=== PATIENT | female | born 1990 | race American Indian/Alaskan Native ===

== ENCOUNTER 2019-12-25 13:10 | Emergency (ER) | payer SELFPAY ==
[2019-12-25 13:36] VITALS: BP 126/74
--- NOTE | 2019-12-25 13:57 | Emergency Department Report ---
Blank Doc - Documentation Documentation: 29-year-old female that presents with diarrhea and weakness. Stated has some SOB but denies any CP. This initial assessment/diagnostic orders/clinical plan/treatment(s) is/are subject to change based on patient's health status, clinical progression and re- assessment by fellow clinical providers in the ED. Further treatment and workup at subsequent clinical providers discretion. Patient/guardians urged not to elope from the ED as their condition may be serious if not clinically assessed and managed. Initial orders include: 1- Patient sent to [facility] for further evaluation and treatment 2- labs
[2019-12-25 15:01] LABS: Bilirubin,Urine NEG (Negative); Blood,Urine NEG (Negative); Color,Urine Straw (Yellow); Protein,Urine <15 mg/dL mg/dL (Negative); Urobilinogen,Urine < 2.0 mg/dL (<2.0)
[2019-12-25 15:11] LABS: Basophils # (Auto) 0.1 K/mm3 (0.0-0.1); Basophils % (Auto) 0.7 % (0.0-1.8); Eosinophils % (Auto) 0.3 % (0.0-4.3); Hematocrit 41.3 % (30.3-42.9); Hemoglobin 13.9 gm/dl (10.1-14.3); Lymphocytes # (Auto) 1.6 K/mm3 (1.2-5.4); Lymphocytes % (Auto) 22.2 % (13.4-35.0); Mean Corpuscular HGB Conc 34 % (30-34); Mean Corpuscular Volume 83 fl (79-97); Monocytes # (Auto) 0.4 K/mm3 (0.0-0.8); Monocytes % (Auto) 5.2 % (0.0-7.3); Platelet Count 241 K/mm3 (140-440); Red Blood Count 4.96 M/mm3 (3.65-5.03); Red Cell Distribution Width 14.1 % (13.2-15.2)
[2019-12-25 15:41] LABS: Alanine Aminotransferase 28 units/L (7-56); BUN/Creatinine Ratio 12; Blood Urea Nitrogen 6 mg/dL (7-17); Calcium 9.9 mg/dL (8.4-10.2)
[2019-12-25 15:42] LABS: Albumin 4.6 g/dL (3.9-5)
--- NOTE | 2019-12-25 15:47 | XRay Report ---
Abdominal series complete with frontal chest 3 views INDICATION / CLINICAL INFORMATION: diarrhea/UPT. Abdominal pain COMPARISON: None available. FINDINGS: TUBES / LINES: None. BOWEL GAS PATTERN: No significant abnormality. FREE AIR / EXTRALUMINAL GAS: None seen. Chest: No significant additional findings. IMPRESSION: 1. No significant abnormality. Signer Name: Jorge Siegel MD Signed: 12/25/2019 3:42 PM Workstation Name: [id number]
--- NOTE | 2019-12-25 17:19 | Emergency Department Report ---
ED General Adult HPI - General Chief complaint: Weakness Stated complaint: PANIC ATTACKS/SOB/C/F Time Seen by Provider: 12/25/19 13:54 Source: patient Mode of arrival: Ambulatory Limitations: No Limitations - History of Present Illness Initial comments: This is a 29-year-old female with no prior medical history who presents the ED complaining of body aches, shortness of breath, diarrhea for the past week. Patient states she has been everywhere so she is unsure if she has had contact with cold with patient or sick contact. Patient states symptoms started about a week ago but is not resolving so she presents here today. Patient does note watery loose stools with some abdominal cramping with stooling Patient states she has a history of anxiety attack and is unsure if this is an attack. At this moment she denies fever/chills/nausea/ vomiting/abdominal pain/chest pain. Patient is worried and thinks she might have COVID. Severity scale (0 -10): 7 - Related Data Allergies Allergy/AdvReac Type Severity Reaction Status Date / Time No Known Allergies Allergy Unverified 12/25/19 13:33 ED Review of Systems ROS: Stated complaint: PANIC ATTACKS/SOB/C/F Other details as noted in HPI Comment: All other systems reviewed and negative ED Past Medical Hx - Past Medical History Additional medical history: PANIC ATTACKS - Surgical History Past Surgical History?: No - Social History Smoking Status: Never Smoker Substance Use Type: None ED Physical Exam - General Limitations: No Limitations General appearance: alert, in no apparent distress - Head Head exam: Present: atraumatic, normocephalic - Eye Eye exam: Present: normal appearance - ENT ENT exam: Present: mucous membranes moist - Neck Neck exam: Present: normal inspection - Respiratory Respiratory exam: Present: normal lung sounds bilaterally. Absent: respiratory distress - Cardiovascular Cardiovascular Exam: Present: regular rate, normal rhythm. Absent: systolic murmur, diastolic murmur, rubs, gallop - GI/Abdominal GI/Abdominal exam: Present: soft, normal bowel sounds - Extremities Exam Extremities exam: Present: normal inspection - Back Exam Back exam: Present: normal inspection - Neurological Exam Neurological exam: Present: alert, oriented X3 - Psychiatric Psychiatric exam: Present: normal affect, normal mood - Skin Skin exam: Present: warm, dry, intact, normal color. Absent: rash ED Course Vital Signs 12/25/19 13:35 Temperature 98.6 F Pulse Rate 76 Respiratory 18 Rate Blood Pressure 126/74 [Right] O2 Sat by Pulse 100 Oximetry ED Medical Decision Making - Lab Data Result diagrams: 12/25/19 14:58 12/25/19 14:58 Laboratory Last Values WBC 7.3 K/mm3 (4.5-11.0) 12/25/19 14:58 RBC 4.96 M/mm3 (3.65-5.03) 12/25/19 14:58 Hgb 13.9 gm/dl (10.1-14.3) 12/25/19 14:58 Hct 41.3 % (30.3-42.9) 12/25/19 14:58 MCV 83 fl (79-97) 12/25/19 14:58 MCH 28 pg (28-32) 12/25/19 14:58 MCHC 34 % (30-34) 12/25/19 14:58 RDW 14.1 % (13.2-15.2) 12/25/19 14:58 Plt Count 241 K/mm3 (140-440) 12/25/19 14:58 Lymph % (Auto) 22.2 % (13.4-35.0) 12/25/19 14:58 Mcleod % (Auto) 5.2 % (0.0-7.3) 12/25/19 14:58 Eos % (Auto) 0.3 % (0.0-4.3) 12/25/19 14:58 Baso % (Auto) 0.7 % (0.0-1.8) 12/25/19 14:58 Lymph # 1.6 K/mm3 (1.2-5.4) 12/25/19 14:58 Mcleod # 0.4 K/mm3 (0.0-0.8) 12/25/19 14:58 Eos # 0.0 K/mm3 (0.0-0.4) 12/25/19 14:58 Baso # 0.1 K/mm3 (0.0-0.1) 12/25/19 14:58 Seg Neutrophils % 71.6 % (40.0-70.0) H 12/25/19 14:58 Seg Neutrophils # 5.2 K/mm3 (1.8-7.7) 12/25/19 14:58 Sodium 137 mmol/L (137-145) 12/25/19 14:58 Potassium 4.3 mmol/L (3.6-5.0) 12/25/19 14:58 Chloride 100.6 mmol/L (98-107) 12/25/19 14:58 Carbon Dioxide 25 mmol/L (22-30) 12/25/19 14:58 Anion Gap 16 mmol/L 12/25/19 14:58 BUN 6 mg/dL (7-17) L 12/25/19 14:58 Creatinine 0.5 mg/dL (0.7-1.2) L 12/25/19 14:58 Estimated GFR > 60 ml/min 12/25/19 14:58 BUN/Creatinine Ratio 12 % 12/25/19 14:58 Glucose 96 mg/dL (65-100) 12/25/19 14:58 Calcium 9.9 mg/dL (8.4-10.2) 12/25/19 14:58 Total Bilirubin 0.40 mg/dL (0.1-1.2) 12/25/19 14:58 AST 37 units/L (5-40) 12/25/19 14:58 ALT 28 units/L (7-56) 12/25/19 14:58 Alkaline Phosphatase 44 units/L (35-129) 12/25/19 14:58 Total Protein 8.2 g/dL (6.3-8.2) 12/25/19 14:58 Albumin 4.6 g/dL (3.9-5) 12/25/19 14:58 Albumin/Globulin Ratio 1.3 % 12/25/19 14:58 HCG, Qual Negative (Negative) 12/25/19 14:58 Urine Color Straw (Yellow) 12/25/19 Unknown Urine Turbidity Clear (Clear) 12/25/19 Unknown Urine pH 7.0 (5.0-7.0) 12/25/19 Unknown Ur Specific [place] 1.009 (1.003-1.030) 12/25/19 Unknown Urine Protein <15 mg/dl mg/dL (Negative) 12/25/19 Unknown Urine Glucose (UA) Neg mg/dL (Negative) 12/25/19 Unknown Urine Ketones Neg mg/dL (Negative) 12/25/19 Unknown Urine Blood Neg (Negative) 12/25/19 Unknown Urine Nitrite Neg (Negative) 12/25/19 Unknown Urine Bilirubin Neg (Negative) 12/25/19 Unknown Urine Urobilinogen < 2.0 mg/dL (<2.0) 12/25/19 Unknown Ur Leukocyte Esterase Neg (Negative) 12/25/19 Unknown Urine WBC (Auto) 0.0 /HPF (0.0-6.0) 12/25/19 Unknown Urine RBC (Auto) 1.0 /HPF (0.0-6.0) 12/25/19 Unknown U Epithel Cells (Auto) < 1.0 /HPF (0-13.0) 12/25/19 Unknown - Radiology Data Radiology results: report reviewed, image reviewed - Medical Decision Making 29-year-old female presents with flu/viral-like symptoms no fever during the ED stay. Abdominal with chest x-ray is normal. Discussed with patient. All labs are within normal limits urinalysis negative, test negative. Discussed all findings with the patient Discussed with patient symptomatic relief with [id number] medications. Discussed continue Tylenol as needed for pain. Discussed increase fluids and diet intake. Discussed rest much needed. Discussed daily vitamin C or multivitamin for immune booster. Discussed follow-up with primary care physician or urgent care clinic for Covid testing if suspicious YADIEL Patient states verbally states she understands and will comply the following instructions and follow-up Vital signs stable. Patient is in no acute distress Critical care attestation.: If time is entered above; I have spent that time in minutes in the direct care of this critically ill patient, excluding procedure time. ED Disposition Clinical Impression: Acute diarrhea, Viral syndrome, Myalgia Disposition: - TO HOME OR SELFCARE Is pt being admited?: No Does the pt Need Aspirin: No Condition: Stable Instructions: COVID-19, Viral Syndrome (ED) Additional Instructions: Make sure to follow up with the primary care physician as discussed. Follow-up with the urgent care or primary clinic for COVID testing. Wear a mask at all times until tested to prevent spread or acquiring If you have any worsening symptoms or develop new symptoms please return to ED immediately. Referrals: PRIMARY CARE, [Primary Care Provider] - 3-[address] [facility] [Provider Group] - 3-5 Days [facility] [Outside] - 3-5 Days [facility] [Outside] - 3-5 Days Forms: Work/School Release Form(ED) Time of Disposition: 17:27
== END 2019-12-25 17:43 | disposition home or self-care (01) ==
LOC: ED 13:10
DX: B34.9 Viral infection, unspecified (principal)
CPT/HCPCS: 36415; 74022; 80053; 81001; 84703; 85025